=== PATIENT | female | born 1965 | race Caucasian/White ===

== ENCOUNTER 2022-01-29 08:21 | Day surgery (SDC) | payer MEDICAID ==
[~2022-01-29] VITALS: Ht 152.4 cm; Wt 68.0 kg
[2022-01-29] MEDS: MEPERIDINE 100 MG INJ. 100 MG/ML VIAL ONE ×2 (10:39→10:41)
[2022-01-29] MEDS: MIDAZOLAM HCL 5 MG/5 ML VIAL ONE ×2 (10:39→10:41)
[2022-01-29 17:26] VITALS: BP_SYST 112
== END 2022-01-29 12:10 | disposition home or self-care (01) ==
LOC: SDS 08:21 → SMU 08:22 → SDS 12:10
PROVIDERS: ATTEND Internal Medicine Gastroenterology
DX: Z12.11 Encounter for screening for malignant neoplasm of colon (principal); K64.8 Other hemorrhoids; Z80.0 Family history of malignant neoplasm of digestive organs; K59.09 Other constipation; Z90.710 Acquired absence of both cervix and uterus; Z20.822 Contact with and (suspected) exposure to COVID-19
CPT/HCPCS: 36415 ×2; 45378; 87426; 99152; U0003; G0378; J2250; J2175